=== PATIENT | male | born 1990 ===

== ENCOUNTER 2023-04-10 15:02 | Emergency (ER) | payer SELFPAY ==
[2023-04-10 15:15] LABS: BASOPHILS ABSOLUTE AUTO 0.01 10^3/uL (0.00-0.50); BASOPHILS PERCENT AUTO 0.2 % (0-1); EOSINOPHILS ABSOLUTE AUTO 0.18 10^3/uL (0.00-1.50); EOSINOPHILS PERCENT AUTO 3.5 % (0-6); HEMOGLOBIN 15.5 g/dL (14.0-18.0); IMMATURE GRAN ABSOLUTE AUTO 0.01 10^3/uL (0.00-0.49); IMMATURE GRAN PERCENT AUTO 0.2 % (0.0-4.9); LYMPHOCYTES ABSOLUTE AUTO 2.31 10^3/uL (0.60-5.00); LYMPHOCYTES PERCENT AUTO 44.7 % (24-44); MEAN CORPUSCULAR HEMOGLOBIN 31.3 pg (27.0-32.0); MEAN CORPUSCULAR HGB CONC 34.4 g/dL (32.0-36.0); MEAN CORPUSCULAR VOLUME 90.9 fL (83.0-97.0); MONOCYTES PERCENT AUTO 19.3 % (0-10); NEUTROPHILS ABSOLUTE AUTO 1.66 x10^3/uL (1.80-8.00); NEUTROPHILS PERCENT AUTO 32.1 % (41-71); PLATELET COUNT,PLT 336 10^3/uL (150-400); RED BLOOD CELL COUNT 4.95 x10^6/uL (4.50-6.00); WHITE BLOOD CELL COUNT,WBC 5.2 10^3/uL (4.0-11.0)
[2023-04-10] MEDS: Sodium Chloride 0.9% 1,000 ML IV ONE (15:19)
[2023-04-10 15:21] LABS: APPEARANCE,URINE CLEAR (CLEAR); BILIRUBIN,URINE NEGATIVE (NEGATIVE); COLOR,URINE YELLOW (YELLOW); GLUCOSE,URINE NEGATIVE (NEGATIVE); KETONES,URINE NEGATIVE (NEGATIVE); LEUKOCYTE ESTERASE,URINE NEGATIVE (NEGATIVE); NITRITE,URINE NEGATIVE (NEGATIVE); OCCULT BLOOD,URINE NEGATIVE (NEGATIVE); PROTEIN,URINE NEGATIVE (NEGATIVE); UROBILINOGEN,URINE 0.2 EU/dL (0.2-1.0)
[2023-04-10] MEDS: Ondansetron 4 MG/2 ML SDV IVPUSH STA (15:31)
[2023-04-10] MEDS: Morphine 2 MG/ML SYRINGE IVPUSH ONE (15:31)
[2023-04-10 15:33] LABS: ALBUMIN 3.8 g/dL (3.4-5.0); BILIRUBIN TOTAL 0.4 mg/dL (0.0-1.0); CALCIUM 8.9 mg/dL (8.4-10.1); CREATININE 0.9 mg/dL (0.7-1.3); EST CRCL DRUG DOSING (CG) 120.02 mL/min; MAGNESIUM 1.9 mg/dL (1.8-2.4); POTASSIUM,K 3.8 mEq/L (3.5-5.0)
[2023-04-10] MEDS: Iopamidol 755 Mg/ML 100 ML Bottle IVPUSH ONE (15:50)
== END 2023-04-10 17:14 | disposition home or self-care (01) ==
LOC: CC.ED 15:02
DX: S39.011A Strain of muscle, fascia and tendon of abdomen, initial encounter (principal); Z72.0 Tobacco use
CPT/HCPCS: 36415; 74177; 80053; 81003; 83690; 83735; 85025; 96374; 96375; 99283; 99284; J2270; J2405; J7030; Q9967

== ENCOUNTER 2023-08-10 07:43 | Emergency (ER) | payer SELFPAY | END 2023-08-10 08:40 | disposition home or self-care (01) | LOC: CC.ED 07:43 | DX: J02.9 Acute pharyngitis, unspecified (principal); J06.9 Acute upper respiratory infection, unspecified | CPT/HCPCS: 87430; 99283 ==